=== PATIENT | female | born 1985 | race Caucasian/White ===

== ENCOUNTER 2025-01-09 15:36 | Emergency (ER) | payer BC, SELFPAY ==
[2025-01-09 15:45] VITALS: BP 134/88
--- NOTE | 2025-01-09 17:26 | ED.GENMED ---
History of Present Illness
General
Chief Complaint: Head Injury
Source: patient
Exam Limitations: none
Time Seen by Provider: 01/09/25 16:29
Nursing documentation reviewed up to this point in time: agreed with
History of Present Illness
History of Present Illness:
Patient states a patio canopy fell onto her head. No LOC. Complains of headache. Incident occurred just [employer]
Past History
Past History
ED Past Medical History: None
ED Past Surgical History: Brain
Phy Exam
General Physical Exam
General Presentation: well appearing and no apparent distress
General age: appears stated age
General Skin: warm and dry
General Habitus: normal
General Mental: alert
Neurological Exam
Neurological Exam: alert, oriented x3, CN II-XII intact, no motor deficits, no sensory deficits and speech normal
[place] Coma Scale
Eye Opening: Spontaneous
Verbal Response: Oriented
Motor Response: Obeys Commands
GCS Total Score: 15
Musculoskeletal Exam
Musculoskeletal Exam: full ROM and neuro vasc intact
Skin Exam
Skin Exam: normal color, warm/dry and no rash
Psychiatric Exam
Psychiatric Exam: normal mood/affect
Course
Orders/Labs/Results
Orders:
Orders
01/09/25 15:51
CT Head W/o Iv Contrast Urgent
Comment:
Reason For Exam: head injury on effient
Vital Signs
Initial and Last Documented VS:
Initial Vital Signs
Temp Pulse Resp BP Pulse Ox
97.8 F 68 16 134/88 100
01/09/25 15:45 01/09/25 15:45 01/09/25 15:45 01/09/25 15:45 01/09/25 15:45
Last Documented Vital Signs
Temp Pulse Resp BP Pulse Ox
97.8 F 68 16 134/88 100
01/09/25 15:45 01/09/25 15:45 01/09/25 15:45 01/09/25 15:45 01/09/25 15:45
*Radiology
Radiology exam reviewed: radiology read reviewed
*Pulse Oximetry
Patient hypoxic: no
*Critical Care Note
Total Time (30-74mins, 75-104mins- exclusive of procedures): Not Applicable
ED Attending Note
-
Portions of this chart may have been created with voice recognition software.� Occasional wrong word or��sound alike� substitutions may have occurred due to the inherent limitations of voice recognition software.
Discharge Plan
Departure
Patient Disposition: Home (Routine Discharge)
Date of Disposition: 01/09/25
Time of Disposition: 17:25
Patient with high blood pressure during this ER visit?: No
Condition: Good
Covid-19: Not Applicable
Discharge Problem:
Head injury
Instructions: Head Injury in Adults (DC), Contusion (DC)
Referrals:
Martir Dia MD [Family Provider] - Tomorrow
Activity Restrictions/Additional Instructions:
Return to the emergency department immediately for any changes in/worsening of your symptoms.
Interventions
Interventions:
*Risk Screen - Suicide Last Done: 01/09/25 15:45
*Neglect/Abuse Screening Last Done: 01/09/25 15:45
ED- Neurological Assessment Last Done: 01/09/25 16:32
ED-Skin Assessment Last Done: 01/09/25 16:32
Discharge Date and Time
Print Language: [place]
== END 2025-01-09 17:38 | disposition home or self-care (01) ==
LOC: EMR 15:36
PROVIDERS: EMERGENCY PHYSICIAN Emergency Medicine; FAMILY PHYSICIAN Family Medicine
DX: S09.90XA Unspecified injury of head, initial encounter (principal); R51.9 Headache, unspecified; W20.8XXA Other cause of strike by thrown, projected or falling object, initial encounter; I10 Essential (primary) hypertension; K21.9 Gastro-esophageal reflux disease without esophagitis
CPT/HCPCS: 99284; 70450

== ENCOUNTER 2025-01-28 11:12 | Emergency (ER) | payer BC, SELFPAY ==
[2025-01-28 11:13] VITALS: BMI 31.0
[2025-01-28 11:14] VITALS: BP 156/107
--- NOTE | 2025-01-28 11:45 | ED.GENMED ---
History of Present Illness
General
Chief Complaint: Abdominal Pain
Time Seen by Provider: 01/28/25 11:44
History of Present Illness
History of Present Illness:
REVIEW OF OLD RECORDS
- I reviewed records, the patient has a history of cerebral aneurysm with stents placed at [facility], she also has a history of GERD, high blood pressure. The patient was seen here 3 weeks ago with head injury and CAT scan of the brain was unremarkable.
Note:
CHIEF COMPLAINT(S)
Abdominal pain with a burning sensation throughout the abdomen.
HISTORY OF PRESENT ILLNESS
The patient is a 39-year-old female who presented with a 24-hour, constant burning sensation in the abdomen, described as an inability to find comfort, stating, 'I cant get comfortable.' Movement seems to exacerbate the pain, creating a constant
sensation of discomfort. The patient was recently seen at [facility], where blood tests were performed, and she received treatment with Maalox, lidocaine, and carafate with no reported improvement. She reports a history of endoscopy in May,
revealing possible long Barretts esophagus and benign polyps, with old inflammation noted. Her previous treatment included esomeprazole without significant relief; she has since been switched to Nexium, leading to worsening symptoms. Eating and
drinking have become intolerable due to persistent symptoms, described as 'not when Im just eating,' and Maalox provides no relief. The patient is currently awaiting a follow-up endoscopy.
ADDITIONAL HISTORY OBTAINED FROM SOURCES OTHER THAN THE PATIENT
According to the patient�s spouse, she was dropped off at the facility.
EXTERNAL RECORDS REVIEWED
According to prior medical records, the patient had an endoscopy in May revealing possible long Barretts esophagus and benign polyps.
CHRONIC MEDICAL CONDITIONS SIGNIFICANTLY AFFECTING CARE
The patient has a history of Barretts esophagus and cerebral aneurysms for which she received a stent in July 2024 and is on Eliquis and aspirin.
SOCIAL DETERMINANTS AFFECTING HEALTH
The patient reported quitting smoking after her procedure and has abstained from alcohol for months.
MEDICATIONS
Patient is currently on Nexium 40 mg twice daily, Eliquis, and aspirin following a cerebral stent procedure.
REVIEW OF SYSTEMS
- Gastrointestinal: Constant burning abdominal pain and discomfort unrelieved by Maalox and carafate. No tarry stools, though reports of dark pieces in stool.
- General: Inability to eat or drink without discomfort.
PHYSICAL EXAM
- General: Well appearing but appears uncomfortable
- HEENT: Moist oral mucosa
- Cardiovascular: Normal heart rate, regular rhythm, mild chest wall tenderness
- Pulmonary: No respiratory distress, breath sounds are clear and equal
- Abdomen: Soft with no peritoneal signs, mild abdominal wall tenderness
- Neurologic: Excellent strength all extremities, no coordination deficits
- Psychiatric: Appears upset and somewhat tearful
- Extremities: Nontender, no edema, moves all extremities equally
- Skin: No rash, no lesions
- Gastrointestinal: Palpation of the abdomen elicits burning pain.
- Nursing notes reviewed and vital signs reviewed.
PROBLEM LIST
Acute Problems:
- Constant burning abdominal pain.
Chronic Problems:
- Barretts esophagus.
- Status post cerebral aneurysm with stent placement.
PLAN
- Proceed with an abdominal x-ray to evaluate for possible perforation or air outside of the gastrointestinal tract.
- Message the chemist organic caustic purification operator for further recommendations.
- Administer intravenous famotidine (Pepcid) and pantoprazole (Protonix) for symptomatic relief.
DIFFERENTIAL DIAGNOSIS
The Differential Diagnosis includes, in no particular order and is not limited to:
1. Gastroesophageal reflux disease (GERD)
2. Peptic ulcer disease
3. Gastritis
4. Esophagitis
5. Vasquez�s esophagus complications
6. Gallbladder disease
7. Pancreatitis
8. Acute or chronic gastritis
9. Small bowel obstruction
10. Abdominal aortic aneurysm
RADIOLOGY
- Abdominal series obtained which shows no evidence of perforation
EKG
-
LABS
- White count, hemoglobin, chemistries including bicarb normal, no ketones in the urine
UPDATE
- I sent message to Dr. Milner: 'Here w/ constant sensation of burning in chest for the past few weeks. Saw Shailesh ARLETH, switched her from Omeprazole to Nexium. She is on aspirin and Brilinta since cerebral aneurysm stents placed last July and plan
was another EGD once off Brilinta maybe next month. She went to [facility] overnight and was given PPI, pepcid, Carafate, Maalox, lidocaine, but was discharged after no improvement. Labs on her phone were reviewed and normal. They did not do imaging
- will check abd/chest x-ray now to eval for any mediastinal air or perf, but she remains to appear very uncomfortable, tearful, doesn't know what else to do.'
01/28/25 - 14:32
The GI consult suggested considering a CAT scan for a more detailed look to rule out other obvious issues, as they do not see the need for another endoscopy at this moment. The patients hydrogen blood work returned normal. The patient reports a
squeezing and pulsing sensation in the chest, occurring like a wave. An EKG performed at [facility] was reportedly normal. A repeat EKG is possible, but not deemed necessary at this time. The plan is to proceed with the CAT scan today and administer
another dose of Carafate. Spasms are considered a possible cause for the patients symptoms.
Giving Pepcid and IV fluids.
01/28/25 - 16:07
Patient exhibits no life-threatening conditions or signs of perforation. Ongoing concern for cancer development is addressed; endoscopy in May deemed sufficiently recent to rule out rapid development, given young age and typical cancer growth
rates. Severe pain contextually unlikely related to cancer, supported by normal CT scan results. Prescription for Carafate will be sent to patients pharmacy. GI consultation recommended for further evaluation. Dr. Milner has been notified; his sole
additional recommendation was the CT scan, which is completed.
Past History
Past History
ED Past Medical History: None
ED Past Surgical History: Brain
Phy Exam
Physical Exam
Physical Exam:
See HPI
Course
Orders/Labs/Results
Orders:
Orders
01/28/25 12:14
CR Obstruct Series W/pa Chest Urgent
Comment:
Reason For Exam: pain; hcg negative 4:05am today [facility]
01/28/25 12:19
0.9% Sodium Chloride 1000 ml [Nss] 1,000 ml IV BOLUS
Famotidine [Pepcid] 40 mg IV NOW STA
01/28/25 12:26
Complete Blood Count/With Diff Urgent
Comprehensive Metabolic Panel Urgent
01/28/25 12:30
Urinalysis Reflex To Culture Urgent
Date Specimen was Collected: 01/28/25
Time Specimen was Collected: 12:29
Urine Microscopic Reflex Cult Urgent
01/28/25 14:27
CT Chest With Iv Contrast Urgent
Comment:
Reason For Exam: severe pain / burning / recommended by GI
Sucralfate Suspension [Carafate Suspension] 1 gm PO NOW STA
Abnormal Lab Results
01/28/25 01/28/25
12:26 12:30
MPV 10.5 H fL
(7.4-10.4)
Absolute Monos (auto) 0.7 H 10^3/uL
(0.1-0.6)
Chloride 108 H mmol/L
(98-107)
Ur Occult Blood Reflex 3+ A
(Negative)
Urine RBC 3-6 A /HPF
(0-2)
Urine Bacteria (Reflex) Few A
(Negative)
01/28/25 12:26
01/28/25 12:26
Vital Signs
Initial and Last Documented VS:
Initial Vital Signs
Temp Pulse Resp BP Pulse Ox
36.8 C 67 18 156/107 99
01/28/25 11:14 01/28/25 11:14 01/28/25 11:14 01/28/25 11:14 01/28/25 11:14
Last Documented Vital Signs
Temp Pulse Resp BP Pulse Ox
36.6 C 74 16 118/74 100
01/28/25 16:00 01/28/25 16:00 01/28/25 16:00 01/28/25 16:00 01/28/25 16:00
*Pulse Oximetry
Patient hypoxic: no (99% room air-normal)
*Critical Care Note
Total Time (30-74mins, 75-104mins- exclusive of procedures): Not Applicable
ED Attending Note
-
Portions of this chart may have been created with voice recognition software.� Occasional wrong word or��sound alike� substitutions may have occurred due to the inherent limitations of voice recognition software.
Discharge Plan
Departure
Patient Disposition: Home (Routine Discharge)
Date of Disposition: 01/28/25
Time of Disposition: 16:08
Patient with high blood pressure during this ER visit?: Yes
Discharge Problem:
Chest pain due to GERD
Instructions: Acid Reflux and GERD in Adults (DC)
Prescriptions:
New
sucralfate [Carafate] 100 mg/mL suspension
10 ml PO ACHS Qty: 400 0RF
Referrals:
Autumn Milner MD [Active, Gastroenterology]
Martir Dia MD [Family Provider]
Activity Restrictions/Additional Instructions:
Follow-up with your GI doctor at [facility]. I also gave the contact information for the local GI doctor that I spoke to today, Dr. Milner. I sent a prescription for Carafate to your pharmacy. CAT scan of the chest (was also visualized the upper
portion of your abdomen) shows no acute abnormality. Continue your PPI.
Interventions
Interventions:
*Risk Screen - Suicide Last Done: 01/28/25 11:14
*General Assessment Last Done: 01/28/25 11:14
*Neglect/Abuse Screening Last Done: 01/28/25 11:14
*ED- Fall Risk Assessment Last Done: 01/28/25 12:08
*Nursing Disposition Last Done: 01/28/25 16:10
AU-Jfsnct-Vnxasagmnp Assessment Last Done: 01/28/25 12:08
Discharge Date and Time
Print Language: [id number]
[2025-01-28 12:00] VITALS: BP 129/74
[2025-01-28] MEDS: NSS 1000 IV (12:35)
[2025-01-28] MEDS: PEPCID 40 MG IV (12:36)
[2025-01-28 12:39] LABS: Urine Albumin Negative (Neg - Trace); Urine Bilirubin Negative (Negative); Urine Character Clear (Clear); Urine Color Yellow; Urine Glucose Negative (Negative); Urine Ketone Negative (Negative); Urine Leukocyte Negative (Negative); Urine Nitrite Negative (Negative); Urine Occult Blood 3+ (Negative); Urine Urobilinogen Negative (Neg - 1+)
[2025-01-28 12:39] LABS: % Basophils 0.8 % (0-2); % Eosinophils 1.1 % (0-6); % Immature Granulocytes 0.4 % (0-0.5); % Lymphocytes 22.3 % (20.5-51.1); % Monocytes 7.1 % (1.7-9.3); % Neutrophils 68.3 % (42.2-75.2); Absolute Basophils 0.1 10^3/uL (0-0.2); Absolute Eosinophils 0.1 10^3/uL (0-0.7); Absolute Lymphocytes 2.1 10^3/uL (1.2-3.4); Absolute Monocytes 0.7 10^3/uL (0.1-0.6); Absolute Neutrophils 6.4 10^3/uL (1.4-6.5); Hematocrit 39.1 % (37.0-47.0); Mean Corp Hgb Conc. 33.2 g/dL (33.0-37.0); Mean Corpuscular Hgb 28.2 pg (27.0-31.0); Mean Corpuscular Volume 84.8 fL (81.0-99.0); Mean Platelet Volume 10.5 fL (7.4-10.4); Nucleated Red Blood Cells % 0 %; Platelet Count 306 10^3/uL (130-400); Red Blood Cell Count 4.61 10^6/uL (4.20-5.40); Red Cell Dist. Width 12.8 % (11.5-14.5); White Blood Cell Count 9.3 10^3/uL (4.8-10.8)
[2025-01-28 12:44] VITALS: BP 135/89
[2025-01-28 12:54] LABS: ALT (SGPT) 24 U/L (0-35); AST (SGOT) 23 U/L (14-36); Alkaline Phosphatase 44 U/L (38-126); Blood Urea Nitrogen 9 mg/dl (7-17); Calcium 9.7 mg/dl (8.4-10.2); Carbon Dioxide 26 mmol/L (22-30); Chloride 108 mmol/L (98-107); Estimated Creatinine Clearance > 125 ml/min; Glucose 98 mg/dl (70-99); Potassium 4.3 mmol/L (3.5-5.1); Sodium 143 mmol/L (135-145); Total Bilirubin 1.2 mg/dl (0.2-1.3); eGFR > 60.00
[2025-01-28 13:00] VITALS: BP 127/82
[2025-01-28 13:01] LABS: Urine Bacteria Few (Negative); Urine Squamous Cell >30 /LPF (Few); Urine White Cell 0-2 /HPF (0-5)
[2025-01-28] MEDS: CARAFATE SUSPENSION 1 GM PO (14:53)
[2025-01-28 16:00] VITALS: BP 118/74
== END 2025-01-28 16:16 | disposition home or self-care (01) ==
LOC: EMR 11:12
PROVIDERS: EMERGENCY PHYSICIAN Emergency Medicine; FAMILY PHYSICIAN Family Medicine
DX: R07.89 Other chest pain (principal); K21.9 Gastro-esophageal reflux disease without esophagitis; Z87.891 Personal history of nicotine dependence; Z86.79 Personal history of other diseases of the circulatory system; Z79.82 Long term (current) use of aspirin; Z79.01 Long term (current) use of anticoagulants
CPT/HCPCS: 99284; 96374; 96361; 71260; 74022; 80053; 81003; 81015; 85025; Q9967